=== PATIENT | female | born 1955 | race Caucasian/White ===

== ENCOUNTER 2018-06-04 07:05 | Outpatient (CLI) | payer MEDICARE, BC ==
--- NOTE | 2018-06-04 09:09 | ULT ---
ULTRASOUND HEPATIC DOPPLER WITH DUPLEX EVALUATION: HISTORY: Hyperbilirubinemia. FINDINGS: Gallbladder has a normal appearance without evidence of stones. The common duct is 0.4 cm. Liver un remarkable without focal mass or intrahepatic biliary dilatation. No free fluid. Spleen is 10.1 cm. Good color and spectral Doppler flow within the hepatic and splenic arteries. Portal venous flow is towards the liver. Hepatic venous flow is towards the IVC. IMPRESSION: No significant abnormalities demonstrated. No evidence of portal venous hypertension. POS: [facility]
== END 2018-06-04 07:06 | disposition home or self-care (01) ==
LOC: SCSULT 07:05
PROVIDERS: ATTEND Internal Medicine Gastroenterology
DX: E80.6 Other disorders of bilirubin metabolism (principal)
CPT/HCPCS: 76705

== ENCOUNTER 2018-09-23 13:33 | Outpatient (CLI) | payer MEDICARE, BC ==
--- NOTE | 2018-09-23 15:03 | MMO ---
Bilateral MAMMO Bilat Screen [facility]. CLINICAL HISTORY: Patient is 63 years old and is seen for screening. The patient has the following family history of breast cancer: aunt, x2. The patient has no personal history of cancer. The patient has a history of right Lumpectomy in 2013 - adh and left needle biopsy in 2012 - benign. VIEWS: The views performed were: bilateral craniocaudal with tomosynthesis and bilateral mediolateral oblique with tomosynthesis. FILMS COMPARED: The present examination has been compared to prior imaging studies performed at [facility] on 06/24/2012, 09/17/2012, 09/24/2012, 05/05/2013, 12/29/2013 and 12/31/2013, and at [facility] on 06/04/2014, 06/29/2015, 07/30/2016 and 08/20/2017. MAMMOGRAM FINDINGS: There are scattered fibroglandular densities. Finding 1: There are benign appearing calcifications seen in both breasts. Finding 2: There is a biopsy clip seen in the left breast. There are no suspicious masses, suspicious calcifications, or new areas of architectural distortion. IMPRESSION: THERE IS NO MAMMOGRAPHIC EVIDENCE OF MALIGNANCY. A ROUTINE FOLLOW-UP MAMMOGRAM IN 1 YEAR IS RECOMMENDED. THE RESULTS OF THIS EXAM WERE SENT TO THE PATIENT. ACR BI-RADS Category 2 - Benign finding MAMMOGRAPHY NOTE: 1. A negative mammogram report should not delay a biopsy if a dominant of clinically suspicious mass is present. 2. Approximately 10% to 15% of breast cancers are not detected by mammography. 3. Adenosis and dense breasts may obscure an underlying neoplasm.
--- NOTE | 2018-09-23 15:25 | BD ---
DEXA BONE DENSITOMETRY: (Dual energy X-ray Absorptiometry) DATE: 09/23/2018 HISTORY: 63-year-old white female for follow-up postmenopausal, age-related osteoporosis screening examination . Height: 68 Weight: 210 lbs Age of menopause: 41 years COMPARISON: Most recent previous: 01/22/2006. Baseline: 01/04/1998. FINDINGS: The bone mineral density (BMD) is given in grams per square centimeter (g/cm2): LUMBAR SPINE: BMD(g/cm2) T-score Z-score L1: 1.074 0.8 2.3 L2: 1.121 0.8 2.6 L3: 1.153 0.6 2.5 L4: 1.044 -0.2 1.8 Total: 1.095 0.4 2.2 Change in BMD compared to most recent previous DEXA: -3.7% Change in BMD compared to baseline DEXA: -4.2% HIP: Femoral neck: 0.768 -0.7 0.8 Total: 1.079 1.1 2.4 Change in BMD compared to most recent previous DEXA: +6.6% Change in BMD compared to baseline DEXA: +8.7% IMPRESSION: 1. The mean bone mineral density of the lumbar spine is normal. Fracture risk is not increased. 2. The bone mineral density of the femoral neck is normal. Fracture risk is not increased. NADINE Jimenez POS: [facility]
== END 2018-09-23 13:34 | disposition home or self-care (01) ==
LOC: BICMAMMO 13:33
PROVIDERS: ATTEND Family Medicine
DX: Z12.31 Encounter for screening mammogram for malignant neoplasm of breast (principal); Z78.0 Asymptomatic menopausal state; Z80.3 Family history of malignant neoplasm of breast
CPT/HCPCS: 77063; 77067; 77080